=== PATIENT | female | born 1960 | race Caucasian/White ===

== ENCOUNTER 2023-03-05 08:34 | Day surgery (SDC) | payer OTHER, BC ==
[2023-03-05 09:01] LABS: HEMATOCRIT 41.9 % (34.3-46.0); HEMOGLOBIN 13.9 g/dL (11.2-15.5); MEAN CORPUSCULAR HEMOGLOBIN 30.2 pg (31.6-35.5); MEAN CORPUSCULAR HGB CONC 33.2 g/dL (31.6-35.5); MEAN CORPUSCULAR VOLUME 90.9 fL (81.4-99.0); RED BLOOD CELL COUNT 4.61 M/uL (3.77-5.24); WHITE BLOOD CELL COUNT,WBC 9.9 K/uL (3.2-11.0)
[2023-03-05 09:22] LABS: A/G RATIO 0.9 (1.2-2.2); ALANINE AMINOTRANSFERASE,ALT 28 U/L (12-78); ALBUMIN 3.5 g/dL (3.4-5.0); ALKALINE PHOSPHATASE 126 U/L (46-116); ASPARTATE AMNIOTRANSFERASE,AST 20 U/L (15-37); BILIRUBIN TOTAL 0.7 mg/dL (0.2-1.0); CALCIUM 8.4 mg/dL (8.5-10.1); CARBON DIOXIDE,CO2 26 mmol/L (21-32); CHLORIDE,CL 103 mmol/L (100-108); CREATININE 0.9 mg/dL (0.6-1.0); ESTIMATED GFR 73 mL/min (>60); GLUCOSE RANDOM 147 mg/dL (74-106); POTASSIUM,K 4.1 mmol/L (3.6-5.2); PROTEIN TOTAL,TP 7.6 g/dL (6.4-8.2); SODIUM,NA 139 mmol/L (140-148)
[2023-03-05 09:23] LABS: ANION GAP 14.1 mmol/L (5.0-14.0)
[2023-03-05 09:24] LABS: BLOOD UREA NITROGEN,BUN 17 mg/dL (7-18)
[2023-03-05] MEDS ORDERED: Lactated Ringers 1,000 ML IV SCH (09:30)
[2023-03-05] MEDS ORDERED: Nozin Nasal Sanitizer NASBOTH ONE (09:30)
[2023-03-05] MEDS ORDERED: Midazolam 1 MG/ML 2 ML SDV ONE ×2 (09:31→11:09)
[2023-03-05] MEDS ORDERED: Propofol 200 MG/20 ML SDV ONE ×2 (09:31→11:08)
[2023-03-05] MEDS ORDERED: fentaNYL 100 MCG/2 ML SDV ONE ×2 (09:31→12:32)
[2023-03-05] MEDS ORDERED: ceFAZolin 2 GM in Sodium Chloride 0.9% 50 ML IV ONE (10:15)
[2023-03-05] MEDS ORDERED: Bupivacaine 0.5% 30 ML SDV ONE ×2 (10:23→10:33)
[2023-03-05] MEDS ORDERED: Rocuronium 50 MG/5 ML Vial ONE (11:08)
[2023-03-05] MEDS ORDERED: Glycopyrrolate 0.2 MG/ML 5 ML MDV ONE (11:08)
[2023-03-05] MEDS ORDERED: Neostigmine Methylsulfate 1 MG/ML 5 ML Syringe ONE (11:08)
[2023-03-05] MEDS ORDERED: Ondansetron 4 MG/2 ML SDV ONE (11:08)
[2023-03-05] MEDS ORDERED: Succinylcholine 200 MG/10 ML MDV ONE (11:08)
[2023-03-05] MEDS ORDERED: Dexamethasone 4 MG/ML SDV ONE (11:08)
[2023-03-05] MEDS ORDERED: fentaNYL 250 MCG/5 ML SDV ONE (11:09)
[2023-03-05] MEDS ORDERED: Lactated Ringers 1,000 ML ONE (12:42)
[2023-03-05] MEDS ORDERED: Acetaminophen/oxyCODONE 325-5 MG Tab PO PRN (14:26)
[2023-03-05 16:20] VITALS: BP 136/72; PULSE 77
== END 2023-03-05 16:15 | disposition home or self-care (01) ==
LOC: JP.SDS 08:34
PROVIDERS: ATTEND Specialist
DX: M75.101 Unspecified rotator cuff tear or rupture of right shoulder, not specified as traumatic (principal); J45.909 Unspecified asthma, uncomplicated; E11.9 Type 2 diabetes mellitus without complications; I10 Essential (primary) hypertension; F41.9 Anxiety disorder, unspecified; E03.9 Hypothyroidism, unspecified; Z79.51 Long term (current) use of inhaled steroids; Z79.890 Hormone replacement therapy; Z79.899 Other long term (current) drug therapy; Z88.0 Allergy status to penicillin; Z88.2 Allergy status to sulfonamides
CPT/HCPCS: 23130; 29826; 29827; 36415; 80053; 85027; A9270; C1713; J0330; J0690; J1100; J2250; J2405; J2704; J2710; J3010; J3490; J7120